=== PATIENT | female | born 1955 | race Caucasian/White ===

== ENCOUNTER 2018-09-25 11:35 | Emergency (ER) | payer BC ==
[2018-09-25 12:03] VITALS: BP 132/69
--- NOTE | 2018-09-25 12:22 | UC ---
UC General HPI - HPI Summary HPI Summary: pt is c/o a "burning" rash x 3 days. describes as spots in groin, on buttock and behind knees. rash is spreading. had been gardening prior to onset. no fever or joint pains. no hot tub use. pt notes her insect bites usually form a "welt". - History of Current Complaint Chief Complaint: UCSkin Stated Complaint: SKIN CONCERN Time Seen by Provider: 09/25/18 12:09 Hx Obtained From: Patient Onset/Duration: Gradual Onset Timing: Constant Pain Intensity: 7 - Allergy/Home Medications Allergies/Adverse Reactions: Allergies Allergy/AdvReac Type Severity Reaction Status Date / Time timolol Allergy Itching Verified 09/25/18 12:03 Home Medications: Home Medications Latanoprostene Bunod [Vyzulta] 5 ml OP DAILY 09/25/18 [History Confirmed ] methazolAMIDE [Methazolamide] 25 mg PO BID 09/25/18 [History Confirmed 09/25/18] PMH/Surg Hx/FS Hx/Imm Hx - Additional Past Medical History Additional PMH: glaucoma - Surgical History Surgical History: Yes Surgery Procedure, Year, and Place: left knee arthroscopy; - Family History Known Family History: Positive: Non-Contributory - Social History Lives: With Family Alcohol Use: Daily Alcohol Amount: wine with dinner Substance Use Type: None Smoking Status (MU): Light Every Day Tobacco Smoker Type: Cigarettes Amount Used/How Often: 1/2 PK DAILY Length of Time of Smoking/Using Tobacco: 45 years Review of Systems All Other Systems Reviewed And Are Negative: No Constitutional: Negative: Fever, Chills, Fatigue Skin: Positive: Rash Respiratory: Negative: Shortness Of Breath Musculoskeletal: Negative: Arthralgia Physical Exam Triage Information Reviewed: Yes Appearance: Well-Appearing Vital Signs: Initial Vital Signs Temp 98.1 F 09/25/18 11:56 Pulse 71 09/25/18 11:56 Resp 18 09/25/18 11:56 BP 132/69 09/25/18 11:56 Pulse Ox 100 09/25/18 11:56 Vital Signs Reviewed: Yes Eyes: Positive: Conjunctiva Clear Neck: Positive: Supple Respiratory: Positive: No respiratory distress Musculoskeletal: Positive: ROM Intact, No Edema Neurological: Positive: Alert Psychological: Positive: Age Appropriate Behavior Skin Exam: Normal Skin: Positive: Rashes - 1-3mm raised red spots, scattered in small numbers to backs of knees, L buttock and both sides of groin. some of the spots have tiny yellow heads like a pimple or folliculitis. no scale, burrows or blistering and not petechial. Course/Dx - Differential Dx - Multi-Symptom Differential Diagnoses: Other - not typical for scabies.insect bites vs skin infection vs plant mite. will tx with po steroid x 3 days and keflex x 1 week with close f/u. if does not respont to tx, would reconsider plant mite in differential as well. - Diagnoses Provider Diagnosis: Rash Discharge - Sign-Out/Discharge Documenting (check all that apply): Patient Departure All imaging exams completed and their final reports reviewed: No Studies - Discharge Plan Condition: Stable Disposition: HOME Prescriptions: Cephalexin CAP* [Keflex CAP*] 500 mg PO TID 7 Days #21 cap predniSONE [Prednisone 20 MG TAB] 40 mg PO DAILY 3 Days #6 tablet Patient Education Materials: Acute Rash (ED) Referrals: Calista Batista MD [Primary Care Provider] - 5 Days - Billing Disposition and Condition Condition: STABLE Disposition: Home
== END 2018-09-25 12:29 | disposition home or self-care (01) ==
LOC: UCCORT 11:35
DX: R21 Rash and other nonspecific skin eruption (principal); F17.210 Nicotine dependence, cigarettes, uncomplicated; H40.9 Unspecified glaucoma
CPT/HCPCS: 99212; G0463

== ENCOUNTER 2019-05-22 08:43 | Day surgery (SDC) | payer BC ==
[~2019-05-22 08:43] MED LIST: Buffered Lidocaine 1% SYRIN* 1 ML/SYRINGE INTRADERM ONE; Lactated Ringers 1000 ML Bag* 1,000 ML IV SCH
[2019-05-22] MEDS ORDERED: fentaNYL* 50 MCG/ML 2 ML VIAL (100 MCG VIAL) ONE (08:51)
[2019-05-22] MEDS ORDERED: Midazolam* 1 MG/ML 2 ML VIAL (2 MG) ONE ×2 (08:51→10:00)
[2019-05-22] MEDS ORDERED: Propofol* 10 MG/ML 20 ML BTL ONE ×2 (08:54→09:52)
[2019-05-22] MEDS ORDERED: ceFAZolin 2 GM in NS PREMIX(*) 2 GM/100 ML BAG IVPB ONE (08:57)
[2019-05-22] MEDS ORDERED: Dexamethasone IV* 4 MG/ML 1 ML (4 MG) ONE (09:27)
[2019-05-22] MEDS ORDERED: Bupivacaine 0.25% SDV* 30 ML ONE (09:27)
[2019-05-22] MEDS ORDERED: Lidocaine 1% INJ* 10 MG/ML 30 ML SDV ONE (09:27)
[2019-05-22] MEDS ORDERED: Bupivacaine 0.5% SDV PF* 30ML VIAL ONE (09:28)
[2019-05-22] MEDS ORDERED: Lidocaine 2% PF * 5 ML VIAL ONE (09:55)
[2019-05-22 11:46] VITALS: BP 117/86
--- NOTE | 2019-05-23 00:07 | OP ---
OPERATIVE REPORT: DATE OF OPERATION: 05/22/19 - JESUS DATE OF : 53 SURGEON: Juan Singh DPM OUTPATIENT RECEPTIONIST: None. ANESTHESIA: MAC with local. PRE-OP DIAGNOSIS: Painful bunion deformity with hallux limitus, right foot. POST-OP DIAGNOSIS: Painful bunion deformity with hallux limitus, right foot. OPERATIVE PROCEDURE: Bunionectomy with first metatarsal osteotomy on the right foot. PATHOLOGY: Degenerative bone. HEMOSTASIS: Pneumatic ankle tourniquet. ESTIMATED BLOOD LOSS: Less than 20 cc. MATERIALS: A 3.0 mm cannulated [place] screw. INDICATIONS: The patient with progressive and chronic right forefoot pain and deformity with lateral deviation of the great toe, osteophyte proliferation, and degenerative changes with pain and stiffness in the right great toe joint. The patient opted for surgery at this time to attempt to decrease pain and improve function as she cannot walk or wear closed shoes without pain. DESCRIPTION OF PROCEDURE: The patient was brought to the operating room and placed on the operating table in the supine position. The Anesthesia Department administered IV sedation. A peripheral nerve block was performed about the right foot with a 1:1 mixture of 1% lidocaine plain and 0.5% Marcaine plain. The right foot was prepped and draped in the usual fashion. The right foot was then exsanguinated with an Esmarch bandage. The pneumatic ankle tourniquet was inflated to 250 mmHg about a well-padded right ankle. Attention was directed to the dorsomedial aspect of right great toe joint where a linear incision was made. The incision was deepened through the subcutaneous tissues with care being taken to retract neurovascular structures and cauterize superficial bleeders as needed. Next, an inverted L capsular incision was made to allow exposure of the great toe joint. There was noted to be hypertrophic bone at the medial, dorsal, and lateral aspects of the first metatarsal head in respective base of the proximal phalanx. The cartilaginous surfaces were inspected and there were areas of partial and full- thickness cartilaginous erosions and the areas of healthy cartilage as well. A McGlamry elevator was needed to free plantar adhesions with the sesamoid apparatus. Dissection was carried into the first metatarsal space and a lateral release was performed transecting the conjoined tendon of the adductor hallucis, a portion of lateral fibular sesamoid ligament, and lateral capsule as well. This allowed for relaxation of lateral contractures. Next, a sagittal saw and rongeur were used to resect the osteophytes from the base of the proximal phalanx and head of the first metatarsal as well. Power mika was used to further reduce the smooth rough edges. The surgical site was flushed with copious amounts of normal sterile saline. Next, a first metatarsal head osteotomy, which was a modified Chevron-type osteotomy was performed at the apex just dorsal and proximal to the geometric center. The plantar wound was cut from medial to lateral angles with the plantar proximally to allow for some plantarflexion of the capital fragment and the dorsal wing was also cut. It should be noted that saw was saline cooled saw blade. The capital fragment was transposed laterally to correct the position and a temporary fixation was achieved with the wire from the screw set and the position was assessed with the C-arm. Next, using standard technique, a 3.0-mm cannulated Liz screw was placed across the osteotomy site with care being taken to ensure that the tip of the screw did not penetrate into the joint. The temporary fixation was removed. Again, the fixation and correction was assessed with the C-arm and the sagittal saw was used to resect the redundant medial portions of first metatarsal. A power mika was used to smooth rough edges. The osteotomy was inspected and found to be solid with no detectable motion or gapping and the screw was checked again and found to be 2 fingers tight. The surgical site was flushed with copious amounts of normal sterile saline. The capsular and periosteal tissues were reapproximated and secured with 2-0 Vicryl holding the hallux in rectus position. Subcutaneous tissues were reapproximated and secured with 4-0 Vicryl and skin was closed with 5- 0 nylon. 12 mg of dexamethasone phosphate was infiltrated about the surgical site. The incision was dressed with Xeroform gauze and a sterile mildly compressive dressing was applied and secured with light Coban wrap. The pneumatic ankle tourniquet was deflated about the right ankle and a prompt hyperemic response was noted about all 5 digits of the patient's right foot. Having appeared to have tolerated the procedure and anesthesia well, the patient was transported via cart from the operating room to recovery in satisfactory condition with capillary refill less than 3 seconds to all digits of the right foot. [id number]/[facility] #: [id number] MTDD
== END 2019-05-22 11:40 | disposition home or self-care (01) ==
LOC: OREAST 08:43
PROVIDERS: ATTEND Podiatrist Foot Surgery
DX: M21.611 Bunion of right foot (principal); M20.5X1 Other deformities of toe(s) (acquired), right foot; F17.210 Nicotine dependence, cigarettes, uncomplicated; M19.90 Unspecified osteoarthritis, unspecified site
CPT/HCPCS: 76000; 88304; 88311; C1713; C1776; J0690; J1100; J2250; J2704; J3010; J3490